=== PATIENT | female | born 2000 | race Caucasian/White ===

== ENCOUNTER 2023-02-24 20:17 | Emergency (ER) | payer OTHER ==
[~2023-02-24] VITALS: Ht 170.2 cm; Wt 65.8 kg
[2023-02-24 20:35] VITALS: BP 113/68; PULSE 96; RESP 16; TEMP 98.3; O2SAT 96
[2023-02-24] MEDS ORDERED: ACETAMINOPHEN EXTRA STRENGTH 500 MG TAB PO ONE (23:10)
[2023-02-25] MEDS ORDERED: ACET-10509 PO (00:01)
== END 2023-02-25 00:05 | disposition home or self-care (01) ==
LOC: MED 20:17
DX: S62.396A Other fracture of fifth metacarpal bone, right hand, initial encounter for closed fracture (principal); W22.01XA Walked into wall, initial encounter; Y93.89 Activity, other specified; Y92.89 Other specified places as the place of occurrence of the external cause; Y99.8 Other external cause status
CPT/HCPCS: 73130; 81025; 99283